=== PATIENT | male | born 1995 | race Caucasian/White ===

== ENCOUNTER 2023-06-19 12:30 | Emergency (ER) | payer OTHER ==
[~2023-06-19] VITALS: Ht 185.4 cm; Wt 68.0 kg
[2023-06-19 12:49] VITALS: BP 140/89
== END 2023-06-19 13:58 | disposition home or self-care (01) ==
LOC: ER 12:30
DX: S01.01XA Laceration without foreign body of scalp, initial encounter (principal); Z23 Encounter for immunization; V27.49XA Other motorcycle driver injured in collision with fixed or stationary object in traffic accident, initial encounter
CPT/HCPCS: 12002; 90471; 90702; 90715; 99282-25

== ENCOUNTER 2023-06-27 11:42 | Emergency (ER) | payer OTHER ==
[~2023-06-27] VITALS: Ht 182.9 cm; Wt 68.0 kg
== END 2023-06-27 12:37 | disposition home or self-care (01) ==
LOC: ER 11:42
DX: S01.81XD Laceration without foreign body of other part of head, subsequent encounter (principal); X58.XXXD Exposure to other specified factors, subsequent encounter; F17.200 Nicotine dependence, unspecified, uncomplicated
CPT/HCPCS: 99281